=== PATIENT | female | born 1935 | race Caucasian/White ===

== ENCOUNTER 2020-03-09 11:45 | Emergency (ER) | payer OTHER ==
[~2020-03-09] VITALS: Ht 152.4 cm; Wt 46.8 kg
[2020-03-09 11:51] VITALS: Ht 152.4 cm; Wt 46.8 kg
[2020-03-09 13:40] LABS: ANION GAP 10.2 mmol/L (8-16); CALCIUM 9.7 mg/dL (8.5-10.1); CARBON DIOXIDE 27.6 mmol/L (21.0-32.0); POTASSIUM - SERUM 4.8 mmol/L (3.5-5.1)
[2020-03-09 13:46] LABS: ALBUMIN 3.3 g/dL (3.4-5.0); BILIRUBIN - TOTAL 0.4 mg/dL (0.2-1.3); PROTEIN - SERUM 6.6 g/dL (6.4-8.2)
[2020-03-09 13:48] LABS: BASOPHILS 0.1 % (0-2); EOSINOPHILS 0.8 % (0-7); HEMOGLOBIN 12.1 g/dL (12-16); IMMATURE GRANULOCYTES 0.3 % (0-5); LYMPHOCYTES 12.4 % (15-50); MCH 29.7 pg (26.0-34.0); MCHC 31.8 g/dL (31.0-37.0); MCV 93.4 fL (80.0-100.0); MEAN PLATELET VOLUME 9.2 fL (7.4-10.4); MONOCYTES 8.5 % (2-11); NEUTROPHILS 77.9 % (40-80); PLATELET COUNT 224 10x3/uL (130-400); RBC 4.07 10x6/uL (4.00-5.40); RDW 13.7 % (11.5-14.5)
[2020-03-09 13:56] LABS: BACTERIA MODERATE /hpf (NEGATIVE); BILIRUBIN NEGATIVE (NEGATIVE); GLUCOSE NEGATIVE (NEGATIVE); KETONE NEGATIVE (NEGATIVE); NITRITE NEGATIVE (NEGATIVE); SPECIFIC GRAVITY 1.015 (1.005-1.020); UROBILINOGEN NORMAL (NORMAL); WHITE CELLS - URINE >50 /hpf (NEGATIVE)
[2020-03-09 13:57] LABS: HYALINE CAST 0-5 /lpf (NONE SEEN)
[2020-03-09] MEDS ORDERED: MACROBID100 MG PO (14:17)
[2020-03-09] MEDS ORDERED: KEFLEX500 MG PO (14:17)
[2020-03-09 15:25] VITALS: BP 110/60
== END 2020-03-09 15:30 | disposition home or self-care (01) ==
LOC: D.ER 11:45
PROVIDERS: Family Medicine
DX: M79.604 Pain in right leg (principal); S09.90XA Unspecified injury of head, initial encounter; N39.0 Urinary tract infection, site not specified; W19.XXXA Unspecified fall, initial encounter; Y93.9 Activity, unspecified; Y92.9 Unspecified place or not applicable; I10 Essential (primary) hypertension; R51 Headache; M25.512 Pain in left shoulder; R42 Dizziness and giddiness

== ENCOUNTER 2020-07-16 12:50 | Inpatient (IN) | payer OTHER ==
[~2020-07-16] VITALS: Ht 152.4 cm; Wt 51.5 kg
[~2020-07-16 12:50] MED LIST: KEFLEX500 MG PO; MACROBID100 MG PO
[2020-07-16 13:23] LABS: ANION GAP 6.8 mmol/L (8-16); CARBON DIOXIDE 32.5 mmol/L (21.0-32.0); CREATININE - SERUM 1.2 mg/dL (0.6-1.3); POTASSIUM - SERUM 3.3 mmol/L (3.5-5.1)
[2020-07-16 13:24] LABS: BASOPHILS 0.4 % (0-2); EOSINOPHILS 1.5 % (0-7); HEMATOCRIT 39.8 % (36.0-48.0); IMMATURE GRANULOCYTES 0.2 % (0-5); LYMPHOCYTES 33.8 % (15-50); MCH 31.2 pg (26.0-34.0); MCHC 32.7 g/dL (31.0-37.0); MCV 95.4 fL (80.0-100.0); MEAN PLATELET VOLUME 10.6 fL (7.4-10.4); MONOCYTES 9.8 % (2-11); NEUTROPHILS 54.3 % (40-80); PLATELET COUNT 191 10x3/uL (130-400); RBC 4.17 10x6/uL (4.00-5.40); RDW 14.1 % (11.5-14.5); WBC 4.8 10x3/uL (4.8-10.8)
[2020-07-16 13:29] LABS: ALBUMIN 3.8 g/dL (3.4-5.0); BILIRUBIN - TOTAL 0.34 mg/dL (0.2-1.3); MAGNESIUM - SERUM 1.6 mg/dL (1.8-2.4); PROTEIN - SERUM 7.1 g/dL (6.4-8.2)
[2020-07-16 13:54] LABS: BILIRUBIN NEGATIVE (NEGATIVE); KETONE SMALL mg/dL (NEGATIVE); NITRITE NEGATIVE (NEGATIVE); UROBILINOGEN NORMAL mg/dL (< 2)
[2020-07-16 13:55] LABS: AMORPHOUS SEDIMENT <1+ /lpf (NONE SEEN); BACTERIA MODERATE HPF (NONE SEEN)
[2020-07-16 15:41] VITALS: BP 133/88
[2020-07-16 15:41] LABS: CKMB 0.8 U/L (0.0-3.6); CREATINE KINASE 29 UL (21-215)
[2020-07-16 15:47] LABS: TROPONIN-I < 0.017 ng/mL (0.000-0.060)
[2020-07-16 16:26] VITALS: BP 133/88
--- NOTE | 2020-07-16 16:50 | NUR ---
UA COLLECTED BY STRAIGHT(IN/OUT) CATH, PT TOLERATED WELL
--- NOTE | 2020-07-16 18:36 | NUR ---
CASEY CAME TO DESK STATED THAT PATIENT WAS CONFUSED AND THIS WAS NEW, WANTED TO KNOW IF ANY MEDICATONS HAD BEEN GIVEN, THE ONLY NEW MED PATIENT HAD BEEN GIVEN WAS MARINOL. TOLD CASEY I WOULD MAKE A NOTE AND PASS ALONG.
--- NOTE | 2020-07-16 20:01 | NUR ---
RECEIVED REPORT, WILL ASSUME CARE OF PT, IV-RFA-NS @75, GRANDDAUGHTER AT BEDSIDE, DENIES ANY NEEDS AT THIS TIME, BED IS LOW, SRX3, CALL LIGHT IN REACH, WILL CONTINUE PLAN OF CARE
[2020-07-16 20:49] VITALS: BP 133/70
[2020-07-16 22:35] LABS: CREATINE KINASE 34 UL (21-215); TROPONIN-I 0.031 ng/mL (0.000-0.060)
[2020-07-17 00:08] VITALS: BP 134/80
--- NOTE | 2020-07-17 00:39 | NUR ---
I have reviewed this patient and I concur with the Shift Assessment completed by the Licensed Practical Nurse today this shift.
[2020-07-17 05:34] VITALS: BP 135/81
[2020-07-17 08:02] LABS: BASOPHILS 0.2 % (0-2); EOSINOPHILS 1.8 % (0-7); HEMATOCRIT 33.4 % (36.0-48.0); HEMOGLOBIN 10.9 g/dL (12-16); IMMATURE GRANULOCYTES 0.2 % (0-5); LYMPHOCYTES 34.6 % (15-50); MCH 30.5 pg (26.0-34.0); MCHC 32.6 g/dL (31.0-37.0); MCV 93.6 fL (80.0-100.0); MEAN PLATELET VOLUME 10.3 fL (7.4-10.4); MONOCYTES 9.1 % (2-11); NEUTROPHILS 54.1 % (40-80); PLATELET COUNT 159 10x3/uL (130-400); RBC 3.57 10x6/uL (4.00-5.40); WBC 4.5 10x3/uL (4.8-10.8)
[2020-07-17 08:27] LABS: ALKALINE PHOSPHATASE 45 U/L (30-120); ALT (SGPT) 11 U/L (10-68); CALC OSMOLALITY 277 mosm/kg (275-300); CALCIUM 10.3 mg/dL (8.5-10.1); CARBON DIOXIDE 26.6 mmol/L (21.0-32.0); CHLORIDE - SERUM 107 mmol/L (98-107); CKMB 1.5 U/L (0.0-3.6); CREATINE KINASE 47 UL (21-215); CREATININE - SERUM 1.1 mg/dL (0.6-1.3); GLUCOSE 91 mg/dL (74-106); PROTEIN - SERUM 5.7 g/dL (6.4-8.2); SODIUM 140 mmol/L (136-145); TROPONIN-I 0.024 ng/mL (0.000-0.060); UREA NITROGEN 11 mg/dL (7-18); eGFR NON AFRICAN AMERICAN 50 mL/min (90-120)
[2020-07-17 12:19] VITALS: BP 137/77
[2020-07-17] MEDS ORDERED: REMERON15 MG PO ×2 (12:25→18:17)
[2020-07-17 14:00] LABS: MAGNESIUM - SERUM 1.4 mg/dL (1.8-2.4)
[2020-07-17 14:18] LABS: POTASSIUM - SERUM 3.5 mmol/L (3.5-5.1)
[2020-07-17 16:00] VITALS: BP 151/75
--- NOTE | 2020-07-17 16:17 | NUR ---
IV INFILTRATED. FAMILY WANTS LINE FOR BLOOD DRAWS. NEW ORDER GIVEN BY DR. GILLIAM.
[2020-07-17] MEDS ORDERED: ASPIRIN81 MG PO (18:14)
[2020-07-17] MEDS ORDERED: VITAMIN B-121000 MCG PO (18:15)
[2020-07-17] MEDS ORDERED: MOBIC7.5 MG PO (18:16)
[2020-07-17] MEDS ORDERED: NEXIUM40 MG PO (18:16)
[2020-07-17] MEDS ORDERED: EFFEXOR37.5 MG PO (18:17)
[2020-07-17] MEDS ORDERED: LISINOPRIL10 MG PO (18:18)
[2020-07-17] MEDS ORDERED: SINGULAIR10 MG PO (18:18)
[2020-07-17] MEDS ORDERED: PROTONIX40 MG PO (18:19)
[2020-07-17 21:02] VITALS: BP 142/81
--- NOTE | 2020-07-17 22:05 | NUR ---
ASSISTED PATIENT TO AND FROM BSC. ADMINISTERED MEDS PER ORDERS. PATIENT DENIES OTHER NEEDS AT THIS TIME. BED IN LOWEST POSITION AND CALL LIGHT WITHIN REACH. ENCOURAGED THE PATIENT TO CALL IF SHE HAS NEEDS. WILL CONTINUE TO MONITOR.
[2020-07-18 00:45] VITALS: BP 139/85
[2020-07-18 04:37] VITALS: BP 143/79
[2020-07-18 06:23] LABS: BASOPHILS 0.2 % (0-2); EOSINOPHILS 1.7 % (0-7); HEMATOCRIT 32.8 % (36.0-48.0); HEMOGLOBIN 10.6 g/dL (12-16); IMMATURE GRANULOCYTES 0.2 % (0-5); MCH 30.4 pg (26.0-34.0); MCHC 32.3 g/dL (31.0-37.0); MEAN PLATELET VOLUME 10.5 fL (7.4-10.4); MONOCYTES 10.9 % (2-11); PLATELET COUNT 178 10x3/uL (130-400); RBC 3.49 10x6/uL (4.00-5.40); RDW 14.1 % (11.5-14.5); WBC 4.7 10x3/uL (4.8-10.8)
[2020-07-18 06:37] LABS: ANION GAP 12.6 mmol/L (8-16); BILIRUBIN - TOTAL 0.3 mg/dL (0.2-1.3); CALCIUM 9.5 mg/dL (8.5-10.1); CARBON DIOXIDE 24.7 mmol/L (21.0-32.0); CREATININE - SERUM 1.3 mg/dL (0.6-1.3); POTASSIUM - SERUM 3.3 mmol/L (3.5-5.1); PROTEIN - SERUM 5.9 g/dL (6.4-8.2)
--- NOTE | 2020-07-18 07:40 | NUR ---
AM ROUNDS- PT RESTING COMFORTABLY IN BED. ALERT BUT CONFUSED TO TIME AND SITUATION. REORIENTED PT AND HELPED HER TO BEDSIDE COMMODE AND BACK TO BED. PT DENIES ANY NEEDS AT THIS TIME. CALL LIGHT IN REACH, NAD NOTED, WILL CONTINUE PLAN OF CARE.
[2020-07-18 07:50] VITALS: BP 131/77; BP 150/69
--- NOTE | 2020-07-18 08:35 | NUR ---
AM MEDS GIVEN AT THIS TIME. ALSO GAVE 40MEQ OF K FOR LOW K.
--- NOTE | 2020-07-18 08:36 | NUR ---
AM MEDS GIVEN AT THIS TIME. ALSO GAVE 40MEQ OF K FOR LOW K. OFFERED TO SET PT BREAKFAST TRAY UP FOR PT AND PT STATED THAT SHE WAS NOT READY TO EAT AT THIS TIME. BEDSIDE TABLE LEFT CLOSE TO PT TO REACH WHEN SHE IS READY TO EAT.
--- NOTE | 2020-07-18 11:33 | NUR ---
Rehab Prescreening Consult recieved and the chart has been reviewed. She is [facility] and will require a preauth. She has a PT eval and will need an OT eval prior to submitting information to them for review. Discussed in the IDT meeting. Johana Dia RN Clinical Liaison, Rehab
[2020-07-18 12:01] VITALS: BP 147/67
[2020-07-18 13:55] VITALS: Ht 152.4 cm; Wt 51.5 kg
[2020-07-18 15:37] VITALS: BP 112/61
--- NOTE | 2020-07-18 16:33 | MORECARE ---
CASE MANAGEMENT DISCHARGE SUMMARY PATIENT: MARGARITA ESTEVEZ UNIT: [id number] ADM DATE: 07/16/20 AGE: 85 : 36 SEX: F ROOM/BED: D.2112 AUTHOR: NUPUR VEGAS PHYSICIAN: REFERRING PHYSICIAN: ELMO GILLIAM MD DATE OF SERVICE: 07/18/20 Discharge Plan Patient Name: MARGARITA ESTEVEZ Facility: [facility]:[place] : 1935 Planned Disposition: Home with Home Health Anticipated Discharge Date: Discharge Date: Expected LOS: Initial Reviewer: [email or web address] Initial Review Date: 07/18/2020 Generated: 07/18/20 5:32 pm DCPIA - Discharge Planning Initial Assessment Updated by [email or web address]: Di Guerrier on 07/18/20 4:29 pm * Is the patient Alert and Oriented? Yes * How many steps to enter\exit or inside your home? 2/0 * PCP [facility] in [place] * Pharmacy [facility] * Preadmission Environment Home with Family * ADLs Partial Dependent * Partial ADLs (Assistance needed) Ambulation Bathing Dressing Medication Management * Equipment Cane Shower Chair Walker * List name and contact numbers for known caregivers / representatives who currently or will assist patient after discharge: Hung Simms - [phone] Maria E tang [facility] - [phone] Sejal Simms [facility] - [phone] * Verbal permission to speak to the caregivers and representatives has been obtained from the patient. Yes * Community resources currently utilized None * Additional services required to return to the preadmission environment? Yes * Can the patient safely return to the preadmission environment? Yes * Has this patient been hospitalized within the prior 30 days at any hospital? Yes Patient Name: MARGARITA ESTEVEZ Page 28036 at 1633 All edits/amendments must be made on the electronic document DICTATION DATE: 07/18/201631 AUTO CLEANER: TERRI 07/18/20 1632 RPT#: [id number] DC DATE: STATUS: ADM IN [facility] [address] [place] [address] END OF REPORT
--- NOTE | 2020-07-18 16:40 | MORECARE ---
CASE MANAGEMENT DISCHARGE SUMMARY PATIENT: MARGARITA ESTEVEZ UNIT: [id number] ADM DATE: 07/16/20 AGE: 85 : 36 SEX: F ROOM/BED: D.2113 AUTHOR: ASCENCION,DOC PHYSICIAN: REFERRING PHYSICIAN: ELMO GILLIAM MD DATE OF SERVICE: 07/18/20 Discharge Plan Patient Name: MARGARITA ESTEVEZ Facility: [facility]:[place] : 1935 Planned Disposition: Home with Home Health Anticipated Discharge Date: Discharge Date: Expected LOS: Initial Reviewer: [email or web address] Initial Review Date: 07/18/2020 Generated: 07/18/20 5:39 pm Comments DCP- Discharge Planning Updated by [email or web address]: Di Guerrier on 07/18/20 3:[address] Patient Name: MARGARITA ESTEVEZ Admission Status: ER Accout number: [id number] Admission Date: 07-16-2020 : 1935 Admission Diagnosis:WEAKNESS Attending: ELMO GILLIAM Current LOS: 2 Anticipated DC Date: Planned Disposition: Home with Home Health Primary Insurance: [employer] Discharge Planning Comments: CM met with patient and her grand daughter, ;her DIL and son are also on the speaker phone. Patient lives with her grand daughter, Alyce, and Alyce's spouse. They assist her with medication management, bathing, dressing and meal preparation. States her family drive her to her appointments. CM discussed the availability of home health, rehab and SNF. She refuses rehab or SNF. States will consider home health. I left a home health list with her grand daughter for family to review and pick an agency. Family to call me with their decision. CM will continue to follow and assist with discharge planning/needs. Commercial Parts Professional: Di Guerrier DCPIA - Discharge Planning Initial Assessment Updated by [id number]: Di Guerrier on 07/18/20 4:29 pm * Is the patient Alert and Oriented? Yes * How many steps to enter\exit or inside your home? 2/0 * PCP [facility] in [place] * [facility] * Preadmission Environment Home with Family * ADLs Partial Dependent * Partial ADLs (Assistance needed) Ambulation Bathing Dressing Medication Management * Equipment Cane Shower Chair Walker * List name and contact numbers for known caregivers / representatives who currently or will assist patient after discharge: Hung Simms - [phone] Maria E chin - grand daughter - [phone] Sejal Simms - [facility] - [phone] * Verbal permission to speak to the caregivers and representatives has been obtained from the patient. Yes * Community resources currently utilized None * Additional services required to return to the preadmission environment? Yes * Can the patient safely return to the preadmission environment? Yes * Has this patient been hospitalized within the prior 30 days at any hospital? Yes Last DP export: 07/18/20 3:33 p Patient Name: MARGARITA ESTEVEZ Page [id number] at 1640 All edits/amendments must be made on the electronic document DICTATION DATE: 07/18/20 1640 PARTS CONSULTANT: TERRI 07/18/20 [employer] RPT#: [id number] DC DATE: STATUS: ADM IN [facility] [address] [place] [address] END OF REPORT
[2020-07-18 20:00] VITALS: BP 150/79
[2020-07-19] VITALS: BP 152/72
--- NOTE | 2020-07-19 03:19 | NUR ---
PT HAVING DIFFICULTY SLEEPING. CASEY AT BEDSIDE STATES THIS IS THE THIRD NIGHT IN A ROW. PRN MELATONIN SHENA. PT ALERT BUT CONFUSED. RR EVEN AND UNLABORED. NO S/S OF DISTRESS. BED LOW,ALARM IN PLACE, CALL LIGHT WITHIN REACH. WILL CONTINUE TO MONITOR.
--- NOTE | 2020-07-19 04:59 | NUR ---
I have reviewed this patient and I concur with the Shift Assessment completed by the Licensed Practical Nurse today this shift.
[2020-07-19 06:59] VITALS: BP 152/65
[2020-07-19 07:04] LABS: BASOPHILS 0.2 % (0-2); EOSINOPHILS 2.9 % (0-7); HEMATOCRIT 31.5 % (36.0-48.0); HEMOGLOBIN 9.9 g/dL (12-16); IMMATURE GRANULOCYTES 0.2 % (0-5); LYMPHOCYTES 40.7 % (15-50); MCH 29.7 pg (26.0-34.0); MCHC 31.4 g/dL (31.0-37.0); MCV 94.6 fL (80.0-100.0); MEAN PLATELET VOLUME 10.6 fL (7.4-10.4); MONOCYTES 9.6 % (2-11); NEUTROPHILS 46.4 % (40-80); PLATELET COUNT 159 10x3/uL (130-400); RBC 3.33 10x6/uL (4.00-5.40); RDW 14.3 % (11.5-14.5); WBC 4.5 10x3/uL (4.8-10.8)
[2020-07-19 07:30] LABS: ALBUMIN 2.7 g/dL (3.4-5.0); BILIRUBIN - TOTAL 0.18 mg/dL (0.2-1.3); CARBON DIOXIDE 21.3 mmol/L (21.0-32.0); CREATININE - SERUM 1.1 mg/dL (0.6-1.3); PROTEIN - SERUM 5.5 g/dL (6.4-8.2)
[2020-07-19 07:37] LABS: ANION GAP 10.4 mmol/L (8-16); POTASSIUM - SERUM 3.7 mmol/L (3.5-5.1)
--- NOTE | 2020-07-19 08:00 | NUR ---
CALL LIGHT ANSWERED, STATES SHE NEEDS TO GO TO THE BATHROOM. ASSISTED X1 TO BEDSIDE COMMODE. ASSISTED OFF AND BACK INTO BED. SET UP BREAKFAST TRAY. DENIES FURTHER NEEDS OR PAIN AT THIS TIME. CALL LIGHT WITHIN REACH. BED IN LOWEST POSITION. WILL CONTINUE TO MONITOR.
[2020-07-19 12:05] VITALS: BP 130/72
--- NOTE | 2020-07-19 13:18 | NUR ---
OT NOTE: PT CONFUSED; MOD CUES TO GET PT TO EOB; DECREASED ATTN TO TASK; MOD ASSIST WITH ADLS; SIT TO STAND WITH MIN ASSIST; POOR STANDING BALANCE; AMB X APPROX 45 FT WITH WALKER, MOD ASSIST WITH WALKER MGMT; SEVERE SCISSORING GAIT; NO REST BREAK REQIRED. RICHARD CONNELL, OTR/L [phone]
--- NOTE | 2020-07-19 15:42 | NUR ---
Per the CM notes this patient has refused rehab or a SNF. She does not actually have a qualifying acute rehab diagnosis at this time so the rehab will not persue a preauth for rehab. Johana Dia RN [email or web address] Liaison, Rehab
--- NOTE | 2020-07-19 16:00 | NUR ---
OT NOTE: PT COMPLETED SUPINE TO SIT WITH MIN A. PT REQUIRED CGA FOR EOB SITTING. PT REQUIRED VERBAL CUES FOR INCREASED SAFETY SECONDARY TO CONFUSION. PT COMPLETED FACE HYGIENE WITH SETUP AT EOB WITH CGA. [phone] THANK YOU,SUSHILA CORDOBA
[2020-07-19 16:35] VITALS: BP 138/85
--- NOTE | 2020-07-19 18:34 | NUR ---
I have reviewed this patient and I concur with the Shift Assessment completed by the Licensed Practical Nurse today this shift.
[2020-07-19 20:00] VITALS: BP 132/73; BP 151/88
[2020-07-20 04:00] VITALS: BP 158/82
[2020-07-20 07:20] LABS: ALBUMIN 2.8 g/dL (3.4-5.0); ANION GAP 12.2 mmol/L (8-16); BILIRUBIN - TOTAL 0.4 mg/dL (0.2-1.3); CARBON DIOXIDE 22.8 mmol/L (21.0-32.0); PROTEIN - SERUM 5.6 g/dL (6.4-8.2)
[2020-07-20 08:46] LABS: BASOPHILS 0.2 % (0-2); EOSINOPHILS 2.8 % (0-7); HEMATOCRIT 35.6 % (36.0-48.0); HEMOGLOBIN 11.5 g/dL (12-16); IMMATURE GRANULOCYTES 0.2 % (0-5); LYMPHOCYTES 31.1 % (15-50); MCH 30.7 pg (26.0-34.0); MCHC 32.3 g/dL (31.0-37.0); MCV 94.9 fL (80.0-100.0); MEAN PLATELET VOLUME 10.4 fL (7.4-10.4); MONOCYTES 8.5 % (2-11); NEUTROPHILS 57.2 % (40-80); PLATELET COUNT 158 10x3/uL (130-400); RBC 3.75 10x6/uL (4.00-5.40); RDW 14.4 % (11.5-14.5); WBC 5.3 10x3/uL (4.8-10.8)
[2020-07-20] MEDS ORDERED: LEVOFLOXACIN500 MG PO (09:29)
[2020-07-20] MEDS ORDERED: DRONABINOL2.5 MG PO (09:33)
--- NOTE | 2020-07-20 10:15 | MORECARE ---
CASE MANAGEMENT DISCHARGE SUMMARY PATIENT: MARGARITA ESTEVEZ UNIT: [id number] ADM DATE: 07/16/20 AGE: 85 : 36 SEX: F ROOM/BED: D.2113 AUTHOR: ASCENCION,DOC PHYSICIAN: REFERRING PHYSICIAN: ELMO GILLIAM MD DATE OF SERVICE: 07/20/20 Discharge Plan Patient Name: MARGARITA ESTEVEZ Facility: [facility]:[place] : 1935 Planned Disposition: Home with Home Health Anticipated Discharge Date: Discharge Date: Expected LOS: Initial Reviewer: [email or web address] Initial Review Date: 07/18/2020 Generated: 07/20/20 11:14 am Comments DCP- Discharge Planning Updated by [email or web address]: Di Guerrier on 07/18/20 3:[address] Patient Name: MARGARITA ESTEVEZ Admission Status: ER Accout number: [id number] Admission Date: 07-16-2020 : 1935 Admission Diagnosis:WEAKNESS Attending: ELMO GILLIAM Current LOS: 2 Anticipated DC Date: Planned Disposition: Home with Home Health Primary Insurance: [employer] Discharge Planning Comments: CM met with patient and her grand daughter, ;her DIL and son are also on the speaker phone. Patient lives with her grand daughter, Alyce, and Alyce's spouse. They assist her with medication management, bathing, dressing and meal preparation. States her family drive her to her appointments. CM discussed the availability of home health, rehab and SNF. She refuses rehab or SNF. States will consider home health. I left a home health list with her grand daughter for family to review and pick an agency. Family to call me with their decision. CM will continue to follow and assist with discharge planning/needs. Director Of Product Marketing: Di Guerrier DCPIA - Discharge Planning Initial Assessment Updated by [email or web address]: Di Guerrier on 07/18/20 4:29 pm * Is the patient Alert and Oriented? Yes * How many steps to enter\exit or inside your home? 2/0 * PCP [place] in [place] * [facility] * Preadmission Environment Home with Family * ADLs Partial Dependent * Partial ADLs (Assistance needed) Ambulation Bathing Dressing Medication Management * Equipment Cane Shower Chair Walker * List name and contact numbers for known caregivers / representatives who currently or will assist patient after discharge: Hung Simms - [phone] Maria E chin - grand daughter - [phone] Sejal Simms - [facility] - [phone] * Verbal permission to speak to the caregivers and representatives has been obtained from the patient. Yes * Community resources currently utilized None * Additional services required to return to the preadmission environment? Yes * Can the patient safely return to the preadmission environment? Yes * Has this patient been hospitalized within the prior 30 days at any hospital? Yes External Providers External Provider: [facility] Next Contact Date: Service Request Date: Service Type: Resolution: Reviewer: Comments: Last DP export: 07/18/20 3:40 p Patient Name: MARGARITA ESTEVEZ Page 00114 at 1015 All edits/amendments must be made on the electronic document DICTATION DATE: 07/20/20 1014 TIRE ROOM SUPERVISOR: TERRI 07/20/20 1014 RPT#: [id number] DC DATE: STATUS: ADM IN [facility] [address] [place] [address] END OF REPORT
--- NOTE | 2020-07-20 10:23 | MORECARE ---
CASE MANAGEMENT DISCHARGE SUMMARY PATIENT: MARGARITA ESTEVEZ UNIT: [id number] ADM DATE: 07/16/20 AGE: 85 : 36 SEX: F ROOM/BED: D.2113 AUTHOR: ASCENCION,DOC PHYSICIAN: REFERRING PHYSICIAN: ELMO GILLIAM MD DATE OF SERVICE: 07/20/20 Discharge Plan Patient Name: MARGARITA ESTEVEZ Facility: [facility]:[place] : 1935 Planned Disposition: Home with Home Health Anticipated Discharge Date: Discharge Date: Expected LOS: Initial Reviewer: [email or web address] Initial Review Date: 07/18/2020 Generated: 07/20/20 11:22 am Comments DCP- Discharge Planning Updated by [email or web address]: Di Guerrier on 07/18/20 3:[address] Patient Name: MARGARITA ESTEVEZ Admission Status: ER Accout number: [id number] Admission Date: 07-16-2020 : 1935 Admission Diagnosis:WEAKNESS Attending: ELMO GILLIAM Current LOS: 2 Anticipated DC Date: Planned Disposition: Home with Home Health Primary Insurance: [employer] Discharge Planning Comments: CM met with patient and her grand daughter, ;her DIL and son are also on the speaker phone. Patient lives with her grand daughter, Alyce, and Alyce's spouse. They assist her with medication management, bathing, dressing and meal preparation. States her family drive her to her appointments. CM discussed the availability of home health, rehab and SNF. She refuses rehab or SNF. States will consider home health. I left a home health list with her grand daughter for family to review and pick an agency. Family to call me with their decision. CM will continue to follow and assist with discharge planning/needs. End Maker: Di Guerrier DCPIA - Discharge Planning Initial Assessment Updated by [email or web address]: Di Guerrier on 07/18/20 4:29 pm * Is the patient Alert and Oriented? Yes * How many steps to enter\exit or inside your home? 2/0 * PCP [place] in [place] * Pharm[facility] * Preadmission Environment Home with Family * ADLs Partial Dependent * Partial ADLs (Assistance needed) Ambulation Bathing Dressing Medication Management * Equipment Cane Shower Chair Walker * List name and contact numbers for known caregivers / representatives who currently or will assist patient after discharge: Hung Simms - [phone] Maria E chin - grand daughter - [phone] Sejal Simms - [facility] - [phone] * Verbal permission to speak to the caregivers and representatives has been obtained from the patient. Yes * Community resources currently utilized None * Additional services required to return to the preadmission environment? Yes * Can the patient safely return to the preadmission environment? Yes * Has this patient been hospitalized within the prior 30 days at any hospital? Yes External Providers External Provider: [facility] Next Contact Date: Service Request Date: Service Type: Resolution: Reviewer: Comments: Last DP export: 07/20/20 9:14 a Patient Name: MARGARITA ESTEVEZ Page 01597 at 1023 All edits/amendments must be made on the electronic document DICTATION DATE: 07/20/20 1022 CONTROL OPERATOR FLOW COAT: TERRI 07/20/20 1022 RPT#: [id number] DC DATE: STATUS: ADM IN [facility] [address] [place] [address] END OF REPORT
--- NOTE | 2020-07-20 11:37 | MORECARE ---
CASE MANAGEMENT DISCHARGE SUMMARY PATIENT: MARGARITA ESTEVEZ UNIT: [id number] ADM DATE: 07/16/20 AGE: 85 : 36 SEX: F ROOM/BED: D.7193 AUTHOR: NUPUR VEGAS PHYSICIAN: REFERRING PHYSICIAN: ELMO GILLIAM MD DATE OF SERVICE: 07/20/20 Discharge Plan Patient Name: MARGARITA ESTEVEZ Facility: [facility]:[place] : 1935 Planned Disposition: Home with Home Health Anticipated Discharge Date: Discharge Date: Expected LOS: Initial Reviewer: [email or web address] Initial Review Date: 07/18/2020 Generated: 07/20/20 12:36 pm Comments DCP- Discharge Planning Updated by [email or web address]: Di Guerrier on 07/20/20 10:[address] Received discharge orders. Family at bedside. SONDRA for [facility] signed. They would like a rollator walker, BSC and slide bench. I called [facility], they are not in network. I called [facility] and they will deliver rollator. I spoke with Ewelina at [facility] and clinical and order faxed. Home today with home health. DCP- Discharge Planning Updated by [email or web address]: Di Guerrier on 07/18/20 3:[address] Patient Name: MARGARITA ESTEVEZ Admission Status: ER Accout number: [id number] Admission Date: 07-16-2020 : 1935 Admission Diagnosis:WEAKNESS Attending: ELMO GILLIAM Current LOS: 2 Anticipated DC Date: Planned Disposition: Home with Home Health Primary Insurance: [employer] Discharge Planning Comments: CM met with patient and her grand daughter, ;her DIL and son are also on the speaker phone. Patient lives with her grand daughter, Alyce, and Alyce's spouse. They assist her with medication management, bathing, dressing and meal preparation. States her family drive her to her appointments. CM discussed the availability of home health, rehab and SNF. She refuses rehab or SNF. States will consider home health. I left a home health list with her grand daughter for family to review and pick an agency. Family to call me with their decision. CM will continue to follow and assist with discharge planning/needs. Property Loss Insurance Claim Adjuster: Di Guerrier DCPIA - Discharge Planning Initial Assessment Updated by [email or web address]: Di Guerrier on 07/18/20 4:29 pm * Is the patient Alert and Oriented? Yes * How many steps to enter\exit or inside your home? 2/0 * PCP [facility] in [place] * [facility] * Preadmission Environment Home with Family * ADLs Partial Dependent * Partial ADLs (Assistance needed) Ambulation Bathing Dressing Medication Management * Equipment Cane Shower Chair Walker * List name and contact numbers for known caregivers / representatives who currently or will assist patient after discharge: Hung Simms - [phone] Maria E tang daughter - [phone] Sejal RODRIGUEZ - [phone] * Verbal permission to speak to the caregivers and representatives has been obtained from the patient. Yes * Community resources currently utilized None * Additional services required to return to the preadmission environment? Yes * Can the patient safely return to the preadmission environment? Yes * Has this patient been hospitalized within the prior 30 days at any hospital? Yes Coverage Notice Reviewer: [id number] - Di Guerrier Notice Issued Date-Time: 07/20/2020 11:36 Notice Type: IM Discharge Notice Notice Delivered To: Family Member Relationship to Patient: Daughter Store Protection Specialist Name: Sejal Simms Delivery Method: HAND - Hand Delivered Laura Days: Prior Verbal Notification: Recipient Understood Notice: Yes Recipient Signature: Yes Med Rec Note Co-signed by Attending: Coverage Notice Comment: IMM explained, signed, given, copy placed in MR Last DP export: 07/20/20 9:23 a Patient Name: MARGARITA ESTEVEZ Page 40918 at 1137 All edits/amendments must be made on the electronic document DICTATION DATE: 07/20/20 1136 TRAFFIC ROUTING ENGINEER: TERRI 07/20/20 1136 RPT#: [id number] DC DATE: STATUS: ADM IN [facility] [address] [place] [address] END OF REPORT
--- NOTE | 2020-07-20 14:07 | NUR ---
Nutrition Follow-up: Using available information collected for calorie count, PO intake is inadequate. Noted plans to d/c. Diet: Cardiac Wt: 113# (07/19) Labs noted: Alb 2.8 Meds noted: Protonix, NS @ 75, Marinol, electrolyte protocol -Encourage PO intake and honor food preferences within diet restrictions. -+Ensure with meals. -Monitor wt; noted daily wts ordered. -RD following.
--- NOTE | 2020-07-20 14:43 | NUR ---
IV AND TELEMETRY DCD. DC PLANS GIVEN. UNDERSTANDING VOICED. ESCORTED TO CAR BY W/C.
--- NOTE | 2020-07-20 15:29 | MORECARE ---
CASE MANAGEMENT DISCHARGE SUMMARY PATIENT: MARGARITA ESTEVEZ UNIT: [id number] ADM DATE: 07/16/20 AGE: 85 : 36 SEX: F ROOM/BED: D.6225 AUTHOR: ASCENCIONDOC PHYSICIAN: REFERRING PHYSICIAN: ELMO GILLIAM MD DATE OF SERVICE: 07/20/20 Discharge Plan Patient Name: MARGARITA ESTEVEZ Facility: [facility]:[place] : 1935 Planned Disposition: Home with Home Health Anticipated Discharge Date: Discharge Date: 07/20/2020 Expected LOS: Initial Reviewer: [email or web address] Initial Review Date: 07/18/2020 Generated: 07/20/20 4:28 pm Comments DCP- Discharge Planning Updated by [email or web address]: Di Guerrier on 07/20/20 2:[address] I called [facility] and they are going to deliver her slide bench, rollator walker and BSC to the house per family request. Home today with [facility]. DCP- Discharge Planning Updated by [email or web address]: Di Guerrier on 07/20/20 10:[address] Received discharge orders. Family at bedside. SONDRA for [facility] signed. They would like a rollator walker, BSC and slide bench. I called [facility], they are not in network. I called [facility] and they will deliver rollator. I spoke with Ewelina at [facility] and clinical and order faxed. Home today with home health. DCP- Discharge Planning Updated by [email or web address]: Di Guerrier on 07/18/20 3:[address] Patient Name: MARGARITA ESTEVEZ Admission Status: ER Accout number: [id number] Admission Date: 07-16-2020 : 1935 Admission Diagnosis:WEAKNESS Attending: ELMO GILLIAM Current LOS: 2 Anticipated DC Date: Planned Disposition: Home with Home Health Primary Insurance: [employer] Discharge Planning Comments: CM met with patient and her grand daughter, ;her DIL and son are also on the speaker phone. Patient lives with her grand daughter, Alyce, and Alyce's spouse. They assist her with medication management, bathing, dressing and meal preparation. States her family drive her to her appointments. CM discussed the availability of home health, rehab and SNF. She refuses rehab or SNF. States will consider home health. I left a home health list with her grand daughter for family to review and pick an agency. Family to call me with their decision. CM will continue to follow and assist with discharge planning/needs. Melting Operator: Di Guerrier DCPIA - Discharge Planning Initial Assessment Updated by [email or web address]: Di Guerrier on 07/18/20 4:29 pm * Is the patient Alert and Oriented? Yes * How many steps to enter\exit or inside your home? 2/0 * PCP [facility] in [place] * [facility] * Preadmission Environment Home with Family * ADLs Partial Dependent * Partial ADLs (Assistance needed) Ambulation Bathing Dressing Medication Management * Equipment Cane Shower Chair Walker * List name and contact numbers for known caregivers / representatives who currently or will assist patient after discharge: Hung Simms - [phone] Maria E robb - [phone] Sejal Simms [facility] - [phone] * Verbal permission to speak to the caregivers and representatives has been obtained from the patient. Yes * Community resources currently utilized None * Additional services required to return to the preadmission environment? Yes * Can the patient safely return to the preadmission environment? Yes * Has this patient been hospitalized within the prior 30 days at any hospital? Yes Coverage Notice Reviewer: [id number] - Di Guerrier Notice Issued Date-Time: 07/20/2020 11:36 Notice Type: IM Discharge Notice Notice Delivered To: Family Member Relationship to Patient: Daughter Senior Design Engineering Specialist Name: Sejal Simms Delivery Method: HAND - Hand Delivered Laura Days: Prior Verbal Notification: Recipient Understood Notice: Yes Recipient Signature: Yes Med Rec Note Co-signed by Attending: Coverage Notice Comment: IMM explained, signed, given, copy placed in MR Last DP export: 07/20/20 10:37 a Patient Name: MARGARITA ESTEVEZ Page 02455 at 1529 All edits/amendments must be made on the electronic document DICTATION DATE: 07/20/20 1529 TRUCK CATERER: TERRI 07/20/20 1529 RPT#: [id number] DC DATE:07/20/20 STATUS: DIS IN [facility] [address] [place] [address] END OF REPORT
--- NOTE | 2020-07-21 09:37 | MORECARE ---
CASE MANAGEMENT DISCHARGE SUMMARY PATIENT: MARGARITA ESTEVEZ UNIT: [id number] ADM DATE: 07/16/20 AGE: 85 : 37 SEX: F ROOM/BED: D.9250 AUTHOR: ASCENCIONDOC PHYSICIAN: REFERRING PHYSICIAN: ELMO GILLIAM MD DATE OF SERVICE: 07/21/20 Discharge Plan Patient Name: MARGARITA ESTEVEZ Facility: [facility]:[place] : 1935 Planned Disposition: Home with Home Health Anticipated Discharge Date: Discharge Date: 07/20/2020 Expected LOS: Initial Reviewer: [email or web address] Initial Review Date: 07/18/2020 Generated: 07/21/20 10:36 am Comments DCP- Discharge Planning Updated by [email or web address]: Di Guerrier on 07/20/20 2:[address] I called [employer] and they are going to deliver her slide bench, rollator walker and BSC to the house per family request. Home today with [facility]. DCP- Discharge Planning Updated by [email or web address]: Di Guerrier on 07/20/20 10:[address] Received discharge orders. Family at bedside. SONDRA for [facility] signed. They would like a rollator walker, BSC and slide bench. I called [employer], they are not in network. I called [employer] [facility] and they will deliver rollator. I spoke with Ewelina at [facility] and clinical and order faxed. Home today with home health. DCP- Discharge Planning Updated by [email or web address]: Di Guerrier on 07/18/20 3:[address] Patient Name: MARGARITA ESTEVEZ Admission Status: ER Accout number: [id number] Admission Date: 07-16-2020 : 1935 Admission Diagnosis:WEAKNESS Attending: ELMO GILLIAM Current LOS: 2 Anticipated DC Date: Planned Disposition: Home with Home Health [facility] Discharge Planning Comments: CM met with patient and her grand daughter, ;her DIL and son are also on the speaker phone. Patient lives with her grand daughter, Alyce, and Alyce's spouse. They assist her with medication management, bathing, dressing and meal preparation. States her family drive her to her appointments. CM discussed the availability of home health, rehab and SNF. She refuses rehab or SNF. States will consider home health. I left a home health list with her grand daughter for family to review and pick an agency. Family to call me with their decision. CM will continue to follow and assist with discharge planning/needs. Veneer Supervisor: Di Guerrier DCPIA - Discharge Planning Initial Assessment Updated by [email or web address]: Di Guerrier on 07/18/20 4:29 pm * Is the patient Alert and Oriented? Yes * How many steps to enter\exit or inside your home? 2/0 * PCP [facility] in [place] * Pharmacy [facility] * Preadmission Environment Home with Family * ADLs Partial Dependent * Partial ADLs (Assistance needed) Ambulation Bathing Dressing Medication Management * Equipment Cane Shower Chair Walker * List name and contact numbers for known caregivers / representatives who currently or will assist patient after discharge: Hung Simms - [phone] Maria E robb - [phone] Sejal Simms [facility] - [phone] * Verbal permission to speak to the caregivers and representatives has been obtained from the patient. Yes * Community resources currently utilized None * Additional services required to return to the preadmission environment? Yes * Can the patient safely return to the preadmission environment? Yes * Has this patient been hospitalized within the prior 30 days at any hospital? Yes Coverage Notice Reviewer: [id number] - Di Guerrier Notice Issued Date-Time: 07/20/2020 11:36 Notice Type: IM Discharge Notice Notice Delivered To: Family Member Relationship to Patient: Daughter Cutter Operator Helper Name: Sejal Simms Delivery Method: HAND - Hand Delivered Laura Days: Prior Verbal Notification: Recipient Understood Notice: Yes Recipient Signature: Yes Med Rec Note Co-signed by Attending: Coverage Notice Comment: IMM explained, signed, given, copy placed in MR Last DP export: 07/20/20 2:29 p Patient Name: MARGARITA ESTEVEZ Page [id number] at 0937 All edits/amendments must be made on the electronic document DICTATION DATE: 07/21/20 09 WASTE HANDLING TECHNICIAN: TERRI 07/21/20 0937 RPT#: [id number] DC DATE:07/20/20 STATUS: DIS IN [facility] [address] [place] [address] END OF REPORT
== END 2020-07-20 14:44 | disposition home health service (06) | DRG 690 ==
LOC: D.ER 12:50 → D.M2 14:15
PROVIDERS: Family Medicine; ADMIT Family Medicine; ATTEND Family Medicine
DX: N39.0 Urinary tract infection, site not specified (principal); E86.0 Dehydration; E87.6 Hypokalemia; E83.42 Hypomagnesemia; I10 Essential (primary) hypertension; W18.30XA Fall on same level, unspecified, initial encounter; R62.7 Adult failure to thrive; Z68.21 Body mass index [BMI] 21.0-21.9, adult; Z91.81 History of falling